=== PATIENT | male | born 1975 | race Caucasian/White ===

== ENCOUNTER 2019-01-15 11:40 | Emergency (ER) | payer OTHER ==
[~2019-01-15] VITALS: Ht 175.3 cm; Wt 106.6 kg
[2019-01-15 12:50] VITALS: BP 148/102
[2019-01-15 13:54] LABS: Basophils # (auto) 0.1 uL; Basophils % (auto) 0.7 % (0.0-2.0); Eosinophils # (auto) 0.5 uL; Eosinophils % (auto) 4.6 % (0.0-7.0); Hematocrit 44.9 % (41.0-53.0); Hemoglobin 15.5 g/dL (13.5-17.5); Lymphocytes # (auto) 2.3 uL; Lymphocytes % (auto) 20.6 % (10.0-50.0); Mean Corpuscular Hemoglobin 30.8 pg (28.0-32.0); Mean Corpuscular Hgb Conc. 34.5 g/dL (32.0-36.0); Mean Corpuscular Volume 89.3 fL (80.0-100.0); Monocytes # (auto) 0.8 uL; Monocytes % (auto) 6.9 % (0.0-12.0); Neutrophils # (auto) 7.4 uL; Neutrophils % (auto) 67.2 % (37.0-80.0); Platelet Count (auto) 273 10^3/uL (140-450); Red Blood Cells 5.03 10^6/uL (4.5-5.90); Red Cell Distribution Width 13.1 % (11.8-14.3)
[2019-01-15 13:55] LABS: Urine WBC None Seen /hpf (0 - 3)
[2019-01-15 14:17] LABS: Albumin 4.2 g/dL (3.4-5.0); Calcium 8.9 mg/dL (8.5-10.1); Potassium 4.1 mmol/L (3.5-5.1)
[2019-01-15 14:19] LABS: BUN/Creatinine Ratio 13.5
[2019-01-15 14:22] LABS: Bilirubin, Total 0.2 mg/dL (0.2-1.0); Total Protein 6.9 g/dL (6.4-8.2)
[2019-01-15 14:27] LABS: Urine Bacteria NONE SEEN /hpf (None Seen); Urine Blood Negative /uL (Negative); Urine Specific Gravity 1.018 (1.001-1.035)
[2019-01-15 15:36] LABS: Alcohol, Urine < 3.0 mg/dL (0-5); Amphetamine Screen, Urine NEGATIVE (NEGATIVE); Barbiturate Scree,Urine NEGATIVE (NEGATIVE); Benzodiazephine Screen, Urine POSITIVE (NEGATIVE); Cannabinoid Screen, Urine NEGATIVE (NEGATIVE); Cocaine Screen, Urine NEGATIVE (NEGATIVE); Opiate Scree,Urine NEGATIVE (NEGATIVE); Phencyclidine Screen, Urine NEGATIVE (NEGATIVE)
== END 2019-01-15 15:27 | disposition home or self-care (01) ==
LOC: ER 11:47
DX: F41.1 Generalized anxiety disorder (principal)
CPT/HCPCS: 36415; 80053; 80307; 81001; 84443; 84484; 85025

== ENCOUNTER 2019-05-21 20:23 | Emergency (ER) | payer BC, OTHER ==
[~2019-05-21] VITALS: Ht 175.3 cm; Wt 106.6 kg
[2019-05-21 21:30] VITALS: BP 150/79
[2019-05-21] MEDS ORDERED: IBUPROFEN 800 MG TAB PO ONE (22:15)
[2019-05-21] MEDS ORDERED: HYDROcodone-ACET 10/325MG TAB PO ONE (22:15)
[2019-05-21] MEDS ORDERED: DIAZEPAM 5 MG TAB PO ONE (22:15)
== END 2019-05-21 22:45 | disposition home or self-care (01) ==
LOC: ER 20:23
DX: M51.36 Other intervertebral disc degeneration, lumbar region (principal); I10 Essential (primary) hypertension; X50.1XXA Overexertion from prolonged static or awkward postures, initial encounter; Y93.89 Activity, other specified; Y99.8 Other external cause status; Y92.89 Other specified places as the place of occurrence of the external cause

== ENCOUNTER 2022-04-17 12:37 | Inpatient (IN) | payer BC ==
[~2022-04-17] VITALS: Ht 176.5 cm; Wt 110.0 kg
[2022-04-17 13:13] LABS: Basophils # (auto) 0.1 10 ^3/uL (0-0.2); Basophils % (auto) 0.8 % (0.0-2.0); Eosinophils # (auto) 0.4 10 ^3/uL (0-0.8); Eosinophils % (auto) 3.1 % (0.0-7.0); Hematocrit 41.2 % (41.0-53.0); Hemoglobin 14.1 g/dL (13.5-17.5); Lymphocytes % (auto) 14.2 % (10.0-50.0); Mean Corpuscular Hemoglobin 30.3 pg (28.0-32.0); Mean Corpuscular Hgb Conc. 34.2 g/dL (32.0-36.0); Mean Corpuscular Volume 88.8 fL (80.0-100.0); Monocytes # (auto) 1.2 10 ^3/uL (0-1.3); Monocytes % (auto) 8.7 % (0.0-12.0); Neutrophils # (auto) 10.3 10 ^3/uL (1.6-8.6); Neutrophils % (auto) 73.2 % (37.0-80.0); Red Blood Cells 4.65 10^6/uL (4.5-5.90); Red Cell Distribution Width 13.4 % (11.8-14.3); White Blood Cell 14.1 10^3/uL (4.4-10.8)
[2022-04-17 13:36] LABS: Calcium 9.6 mg/dL (8.5-10.1)
[2022-04-17 13:40] LABS: BUN/Creatinine Ratio 19.6; Bilirubin, Total 0.6 mg/dL (0.2-1.0); Total Protein 7.6 g/dL (6.4-8.2)
[2022-04-17] MEDS ORDERED: ALUM & MAG HYDROX-SIMETH LIQ(MAALOX) 30 ML PO ONE (14:15)
[2022-04-17] MEDS ORDERED: ONDANSETRON ODT 4 MG TAB PO ONE (14:15)
[2022-04-17] MEDS ORDERED: LIDOCAINE VISCOUS 2% 15ML UD PO ONE (14:15)
[2022-04-17] MEDS ORDERED: FAMOTIDINE 20 MG TAB PO ONE (14:15)
[2022-04-17] MEDS ORDERED: metroNIDAZOLE 500MG/100ML 100 ML IV ONE (16:15)
[2022-04-17] MEDS ORDERED: cefTRIAXone 1GM/50ML D5W 50 ML IV ONE (16:15)
[2022-04-17 17:40] LABS: Urine Blood Negative /uL (Negative); Urine Specific Gravity 1.028 (1.001-1.035)
[2022-04-17] MEDS ORDERED: ONDANSETRON HCL 4 MG/2 ML VIAL IV PRN (19:45)
[2022-04-17] MEDS ORDERED: ACETAMINOPHEN 325 MG TAB PO PRN (19:45)
[2022-04-17] MEDS ORDERED: IOHEXOL 300 MG/ML 100ML BOTTLE IJ ONE (19:47)
[2022-04-17 20:31] LABS: BUN/Creatinine Ratio 21.7; Calcium 9.2 mg/dL (8.5-10.1); Potassium 4.2 mmol/L (3.5-5.1)
[2022-04-17 20:38] LABS: Cholesterol 218 mg/dL (< 200)
[2022-04-17 20:41] LABS: HDL Cholesterol 48 mg/dL (40-59); LDL Cholesterol 167 mg/dL (< 100); Triglycerides 109 mg/dL (< 150)
[2022-04-17 22:43] LABS: Alcohol, Urine < 3.0 mg/dL (0-10); Amphetamine Screen, Urine NEGATIVE (NEGATIVE); Barbiturate Scree,Urine NEGATIVE (NEGATIVE); Benzodiazephine Screen, Urine NEGATIVE (NEGATIVE); Cocaine Screen, Urine NEGATIVE (NEGATIVE); Opiate Scree,Urine POSITIVE (NEGATIVE); Phencyclidine Screen, Urine NEGATIVE (NEGATIVE)
[2022-04-17] MEDS: metroNIDAZOLE 500MG/100ML 100 ML IV SCH (22:47)
[2022-04-17 22:51] LABS: Cannabinoid Screen, Urine POSITIVE (NEGATIVE)
[2022-04-17] MEDS: SODIUM CHLORIDE 0.9% 1,000 ML IV SCH (23:52)
[2022-04-18 00:46] VITALS: BP 141/79
[2022-04-18] MEDS ORDERED: AMLO-496 PO (01:00)
[2022-04-18] MEDS ORDERED: COLCPOW2 PO (01:00)
[2022-04-18] MEDS ORDERED: ALLO300T2 PO (01:00)
[2022-04-18] MEDS ORDERED: HYDR-4798 PO (01:00)
[2022-04-18 05:00] VITALS: BP 111/71
[2022-04-18] MEDS: metroNIDAZOLE 500MG/100ML 100 ML IV SCH ×2 (06:21→14:00)
[2022-04-18] MEDS: SODIUM CHLORIDE 0.9% 1,000 ML IV SCH ×3 (06:23→20:45)
[2022-04-18 06:56] LABS: Basophils # (auto) 0.1 10 ^3/uL (0-0.2); Basophils % (auto) 0.9 % (0.0-2.0); Eosinophils # (auto) 0.4 10 ^3/uL (0-0.8); Eosinophils % (auto) 3.2 % (0.0-7.0); Hematocrit 38.6 % (41.0-53.0); Hemoglobin 13.2 g/dL (13.5-17.5); Lymphocytes # (auto) 2.6 10 ^3/uL (0.4-5.4); Lymphocytes % (auto) 21.3 % (10.0-50.0); Mean Corpuscular Hemoglobin 30.5 pg (28.0-32.0); Mean Corpuscular Hgb Conc. 34.3 g/dL (32.0-36.0); Mean Corpuscular Volume 89.1 fL (80.0-100.0); Monocytes # (auto) 1.2 10 ^3/uL (0-1.3); Monocytes % (auto) 9.8 % (0.0-12.0); Neutrophils % (auto) 64.8 % (37.0-80.0); Red Blood Cells 4.33 10^6/uL (4.5-5.90); Red Cell Distribution Width 13.6 % (11.8-14.3); White Blood Cell 12.3 10^3/uL (4.4-10.8)
[2022-04-18 08:48] VITALS: BP 123/62
[2022-04-18] MEDS: cefTRIAXone 1GM/50ML D5W 50 ML IV SCH (10:06)
[2022-04-18] MEDS: PANTOPRAZOLE 40 MG/10 ML VIAL INJ IV SCH (10:07)
[2022-04-18 13:00] VITALS: BP 125/64
[2022-04-18 17:00] VITALS: BP 112/79
[2022-04-18 17:44] LABS: INR 1.01 (0.9-1.15); Partial Thromboplastin Time 27.8 sec (24.6-33.4)
[2022-04-18] MEDS: HYDROcodone-ACET 5/325MG TAB PO PRN (20:29)
[2022-04-18 22:00] VITALS: BP 128/77
[2022-04-18] MEDS ORDERED: ATORVASTATIN 20 MG TAB PO SCH (22:00)
[2022-04-19] MEDS: metroNIDAZOLE 500MG/100ML 100 ML IV SCH ×4 (03:16→21:07)
[2022-04-19 04:35] VITALS: BP 113/67
[2022-04-19] MEDS ORDERED: GLYCOPYRROLATE 0.2 MG/ML 1ML VIAL ONE (08:31)
[2022-04-19] MEDS ORDERED: fentaNYL CITRATE 100 MCG/2 ML VL ONE (08:31)
[2022-04-19] MEDS ORDERED: DexAMETHasone SOD PHOS 10MG/1ML VIAL INJ ONE (08:31)
[2022-04-19] MEDS ORDERED: ROCURONIUM 10MG/ML 10ML VIAL IV ONE (08:31)
[2022-04-19] MEDS ORDERED: NEOSTIGMINE 1 MG/ML INJ (10mg/10ML VIAL) ONE (08:31)
[2022-04-19] MEDS ORDERED: MEPERIDINE HCL (25 MG/ML) 1ML VIAL ONE ×2 (08:31→15:08)
[2022-04-19] MEDS ORDERED: MIDAZOLAM HCL 2MG/2ML 2ml VIAL (1mg/ml) ONE (08:31)
[2022-04-19] MEDS ORDERED: ONDANSETRON HCL 4 MG/2 ML VIAL ONE (08:31)
[2022-04-19] MEDS ORDERED: PROPOFOL 10 MG/ML 20 ML IV ONE (08:31)
[2022-04-19] MEDS ORDERED: SODIUM CHLORIDE LOCK 10 ML ONE (08:31)
[2022-04-19 09:00] VITALS: BP 134/68
[2022-04-19] MEDS: cefTRIAXone 1GM/50ML D5W 50 ML IV SCH (09:49)
[2022-04-19] MEDS: PANTOPRAZOLE 40 MG/10 ML VIAL INJ IV SCH (09:49)
[2022-04-19] MEDS: LACTATED RINGER'S 1,000 ML IV SCH ×2 (09:51→17:31)
[2022-04-19 12:41] VITALS: BP 131/84
[2022-04-19] MEDS ORDERED: LIDOCAINE 1%HCL (LOCAL ANESTH) 10 ML MDV ONE (13:11)
[2022-04-19] MEDS ORDERED: BUPIVACAINE 0.25% INJ 50ML VIAL ONE (13:12)
[2022-04-19] MEDS ORDERED: ceFAZolin 1GM/50ML 100 ML IV ONE (13:30)
[2022-04-19] MEDS ORDERED: METOCLOPRAMIDE HCL 5MG/ml INJ 2ml VIAL IV PRN (13:45)
[2022-04-19] MEDS ORDERED: MORPHINE SULFATE 4 MG/ML SYR/VIAL IV PRN (13:45)
[2022-04-19] MEDS ORDERED: HYDROmorphone HCL 2 MG/ML VL/or syr IV PRN (13:45)
[2022-04-19] MEDS ORDERED: KETOROLAC TROMETH 60MG/2ML VIAL ONE (15:00)
[2022-04-19] MEDS ORDERED: SUGAMMADEX 200mg/2ml Vial (100MG/ML) IV ONE (15:00)
[2022-04-19] MEDS: HYDROmorphone HCL 2 MG/ML VL/or syr IV PRN ×4 (15:25→16:07)
[2022-04-19 16:55] VITALS: BP 122/50
[2022-04-19] MEDS: MORPHINE SULFATE INJ 2 MG/ml SYRG IV PRN (21:18)
[2022-04-19 21:26] VITALS: BP 127/70
[2022-04-19] MEDS: HYDROcodone-ACET 5/325MG TAB PO PRN (23:35)
[2022-04-20] MEDS: LACTATED RINGER'S 1,000 ML IV SCH ×2 (01:55→14:24)
[2022-04-20] MEDS: MORPHINE SULFATE INJ 2 MG/ml SYRG IV PRN (02:03)
[2022-04-20 05:00] VITALS: BP 123/70
[2022-04-20] MEDS: metroNIDAZOLE 500MG/100ML 100 ML IV SCH ×3 (05:51→22:15)
[2022-04-20] MEDS: HYDROcodone-ACET 5/325MG TAB PO PRN ×2 (05:56→22:15)
[2022-04-20] MEDS: cefTRIAXone 1GM/50ML D5W 50 ML IV SCH (08:51)
[2022-04-20] MEDS: PANTOPRAZOLE 40 MG/10 ML VIAL INJ IV SCH (08:51)
[2022-04-20 09:00] VITALS: BP 127/63
[2022-04-20 14:00] VITALS: BP 132/74
[2022-04-20 17:00] VITALS: BP 142/79
[2022-04-20 21:42] VITALS: BP 143/81
[2022-04-21] MEDS: LACTATED RINGER'S 1,000 ML IV SCH ×2 (02:55→11:15)
[2022-04-21 05:00] VITALS: BP 131/84
[2022-04-21 05:44] LABS: Basophils # (auto) 0.1 10 ^3/uL (0-0.2); Basophils % (auto) 0.3 % (0.0-2.0); Eosinophils # (auto) 0.1 10 ^3/uL (0-0.8); Eosinophils % (auto) 0.3 % (0.0-7.0); Hemoglobin 13.5 g/dL (13.5-17.5); Lymphocytes # (auto) 3.1 10 ^3/uL (0.4-5.4); Lymphocytes % (auto) 17.8 % (10.0-50.0); Mean Corpuscular Hemoglobin 31.1 pg (28.0-32.0); Mean Corpuscular Hgb Conc. 34.7 g/dL (32.0-36.0); Mean Corpuscular Volume 89.4 fL (80.0-100.0); Monocytes # (auto) 1.4 10 ^3/uL (0-1.3); Monocytes % (auto) 8.3 % (0.0-12.0); Neutrophils # (auto) 12.7 10 ^3/uL (1.6-8.6); Neutrophils % (auto) 73.3 % (37.0-80.0); Nucleated Red Blood Cells % 0.1 %; Red Blood Cells 4.36 10^6/uL (4.5-5.90); Red Cell Distribution Width 13.4 % (11.8-14.3); White Blood Cell 17.3 10^3/uL (4.4-10.8)
[2022-04-21] MEDS: metroNIDAZOLE 500MG/100ML 100 ML IV SCH ×2 (05:49→13:49)
[2022-04-21 06:01] LABS: Potassium 4.1 mmol/L (3.5-5.1)
[2022-04-21 06:06] LABS: Albumin 3.6 g/dL (3.4-5.0); BUN/Creatinine Ratio 20.8; Calcium 8.7 mg/dL (8.5-10.1)
[2022-04-21 06:08] LABS: Bilirubin, Total 0.4 mg/dL (0.2-1.0)
[2022-04-21] MEDS ORDERED: LEVO750T8 PO (08:20)
[2022-04-21] MEDS ORDERED: METR500T PO ×2 (08:20→13:16)
[2022-04-21] MEDS ORDERED: HYDR-4798 PO (08:20)
[2022-04-21] MEDS: PANTOPRAZOLE 40 MG/10 ML VIAL INJ IV SCH (08:23)
[2022-04-21] MEDS: cefTRIAXone 1GM/50ML D5W 50 ML IV SCH (08:23)
[2022-04-21] MEDS ORDERED: ATO40T PO ×2 (08:24→13:16)
[2022-04-21 09:00] VITALS: BP 149/82
[2022-04-21 11:02] VITALS: BP 149/82
[2022-04-21 13:00] VITALS: BP 134/88
[2022-04-21] MEDS ORDERED: LEVO500T31 PO (13:16)
[2022-04-21] MEDS ORDERED: HYDR-4902 PO (13:16)
== END 2022-04-21 14:00 | disposition home or self-care (01) | DRG 419 ==
LOC: ER 12:37 → OVERFLOW 19:43 → CENTRAL 23:29
PROVIDERS: ADMIT Registered Nurse; ATTEND Family Medicine
PROC: 0FT44ZZ Resection of Gallbladder, Percutaneous Endoscopic Approach (ICD-10-PCS; principal; 2022-04-19 13:48)
DX: K81.0 Acute cholecystitis (principal); E66.01 Morbid (severe) obesity due to excess calories; I10 Essential (primary) hypertension; E86.0 Dehydration; E78.00 Pure hypercholesterolemia, unspecified; Z68.35 Body mass index [BMI] 35.0-35.9, adult; F41.9 Anxiety disorder, unspecified; M10.9 Gout, unspecified; Z20.822 Contact with and (suspected) exposure to COVID-19; Z71.3 Dietary counseling and surveillance
CPT/HCPCS: 36415; 74177; 76705; 78226; 80048; 80053; 80061; 80307; 81003; 83036; 83690; 84443; 85025; 85610; 85730; 86850; 86900; 86901; 87426; 96365; 96367; C9113; G0378; J0690; J0696; J1100; J1885; J2001; J2250; J2405; J2704; J3490; Q0162